=== PATIENT | female | born 1995 | race Caucasian/White ===

== ENCOUNTER 2022-01-29 14:24 | Emergency (ER) | payer OTHER ==
[2022-01-29 17:49] LABS: BLOOD UREA NITROGEN,BUN 11 mg/dL (7.0-18.0); CARBON DIOXIDE,CO2 23.1 mmol/L (21.0-32.0); CHLORIDE,CL 103 mmol/L (98-107); GLUCOSE RANDOM 99 mg/dL (74-106); POTASSIUM,K 3.8 mmol/L (3.5-5.1); SODIUM,NA 139 mmol/L (136-145)
== END 2022-01-29 20:59 | disposition home or self-care (01) ==
LOC: MW.ED 14:24
DX: O03.9 Complete or unspecified spontaneous abortion without complication (principal); Z3A.01 Less than 8 weeks gestation of pregnancy; Z86.16 Personal history of COVID-19; Z87.891 Personal history of nicotine dependence
CPT/HCPCS: 36415; 76817; 76817-26; 80053; 81001; 84702; 85025; 86850; 86900; 86901; 99284; 99284-25; J2790

== ENCOUNTER 2022-06-06 19:20 | Emergency (ER) | payer OTHER ==
[2022-06-06 20:57] LABS: BLOOD UREA NITROGEN,BUN 11 mg/dL (7.0-18.0); CHLORIDE,CL 101 mmol/L (98-107); GLUCOSE RANDOM 110 mg/dL (74-106); POTASSIUM,K 3.5 mmol/L (3.5-5.1); SODIUM,NA 137 mmol/L (136-145)
[2022-06-06 21:00] LABS: ESTIMATED GFR 70 mL/min (>60)
== END 2022-06-06 23:26 | disposition home or self-care (01) ==
LOC: MW.ED 19:20
DX: N93.9 Abnormal uterine and vaginal bleeding, unspecified (principal)
CPT/HCPCS: 36415; 36430; 80053; 81001; 84702; 85025; 86850; 86900; 86901; 99284; J2790